=== PATIENT | male | born 1995 | race Caucasian/White ===

== ENCOUNTER 2019-03-07 16:23 | Emergency (ER) | payer OTHER, SELFPAY ==
[2019-03-07 16:25] VITALS: BP 217/140; PULSE 104; RESP 18; TEMP 36.9; O2SAT 98; BMI 39.1
[2019-03-07 16:34] VITALS: BP 190/120; PULSE 90; RESP 6; O2SAT 99
--- NOTE | 2019-03-07 16:39 | EKG12_ITS ---
Test Reason : Blood Pressure : / mmHG Vent. Rate : 103 BPM Atrial Rate : 103 BPM P-R Int : 144 ms QRS Dur : 080 ms QT Int : 314 ms P-R-T Axes : 029 017 010 degrees QTc Int : 411 ms Sinus tachycardia NONSPECIFIC T- WAVE ABNORMALITY Confirmed by ISRAEL MARQUEZ, WENDY ([id number]), movie editor SARANYA LEE ([id number]) on 03/09/2019 11:34:29 AM Referred By: JOSE Confirmed By:WENDY WOOD MD
--- NOTE | 2019-03-07 16:40 | ED.VISSUMM ---
- ER Visit Summary Date of Service: 03/07/19 Chief Complaint: Hypertension History of Present Illness: The patient is a 23 M who presents the emergency department after being referred by the urgent care for hypertension. Patient states he went to urgent care with a 3-day history of a sore throat. He denies any fevers or cough. No significant rhinorrhea. He states he looked in the mirror and saw a white pustules on the tonsils as well as pharyngeal erythema. He called his aunt who is a nurse who told him to go to urgent care. When he got to urgent care they took his blood pressure and said that it was extremely high that he needed to come to the emergency room. Couple months ago he was seen by unknown physician in the [place] area was told he had hypertension was put on an unknown medication which she did not take. He denies any headache, blurred vision, dyspnea, chest pains, abnormal urination, or paresthesias/muscle weakness. Physical Examination: Manual blood pressure 190/120 heart rate of 90 respirations are 6 and unlabored pulse ox is 99% afebrile BMI 39.1 Gen: Well-nourished well-developed Head: Normocephalic atraumatic Eyes: Perrl EOMI ENT: TMs clear no rhinorrhea moist mucous membranes there is pharyngeal erythema with tonsillar exudates and swelling. No retropharyngeal or peritonsillar abscess noted. Neck: Supple oddly tender anterior lymphadenopathy. No JVD nontender CVS: Regular rate rhythm no murmurs normal S1-S2 Respiratory: No distress clear to auscultation bilaterally chest nontender Abdomen: Soft nontender nondistended normal bowel sounds no masses Back: Nontender Extremity: Nontender no edema Skin: Normal color no rash Neuro: alert orientated ?3 CN II-XII intact normal strength sensation reflexes gait cerebellar Psych: Normal affect normal mood Test Results: Rapid strep was obtained and was negative. EKG, CBC, BMP, and urinalysis were obtained. EKG demonstrates a sinus tachycardia rate of 103. No concerning features of ACS. Creatinine 1.21. Urinalysis shows no protein. Chest x-ray shows no cardiomegaly. Emergency Department Course and Treatment: Patient will have a throat culture performed. We will place him on azithromycin. Also given a dose of Norvasc. He is otherwise asymptomatic from his hypertension. He understands that he needs to get this under control. I will place him on 5 mg of Norvasc a day and have him follow-up with primary care in 1 week for blood pressure check. Impression: 1. Uncontrolled hypertension 2. Pharyngitis This note was generated with [employer] software. It may contain incorrect words, spelling, and punctuation that were not noted in review of the chart prior to signing ED Disposition - Plan for ED Patient: Disposition: Home or Assisted Living Instructions: HYPERTENSION, New (Begin Treatment) Prescriptions: Azithromycin 500 mg PO DAILY #5 tab Prescription Printed Amlodipine [Norvasc] 5 mg PO DAILY #14 tab Prescription Printed
[2019-03-07 17:02] LABS: Bacteria 0 SEEN /hpf (None Seen); Mucous, Urine 0 SEEN /hpf (<or=2+); Red Blood Cells-Urine 0 SEEN /hpf (0-5); Squamous Epithelial Cells - UA 0 SEEN /hpf (0-5); White Blood Cells 0 SEEN /hpf (0-5)
--- NOTE | 2019-03-07 17:10 | RAD_ITS ---
STUDY: X-RAY CHEST REASON FOR EXAM: Male, 23 years old. Hypertension, sore throat TECHNIQUE: PA and lateral COMPARISON: None. FINDINGS: The lungs are clear and expanded. There is no demonstrated pleural abnormality. Normal size heart. Normal mediastinum and gene. Normal visualized pulmonary arteries. Normal visualized aortic arch and descending thoracic aorta. Dorsal spine demonstrates mild spondylosis. Normal visualized ribs, clavicles, and shoulders. There is no demonstrated abnormality of the visualized soft tissue structures of the upper abdomen. RAD/Chest PA and Lateral IMPRESSION: No acute cardiopulmonary pathology. Electronically Signed: Quinton Cordero MD at 17:33 EDT , Service support ,
[2019-03-07 17:20] LABS: Absolute Lymphocyte Count 1.32 X10^3/ul (0.83-4.51); Absolute Neutrophil Count 5.7 X10^3/uL (2.0-7.7); Basophil# 0.02 X10^3/uL; Basophil% 0.2 % (0-1); Eosinophil# 0.09 X10^3/uL; Eosinophils% 1.1 % (0-5); Hematocrit 43.6 % (40-54); Hemoglobin 14.8 g/dl (13.0-16.5); Lymphocyte # 1.32 X10^3/ul (4.0); Mean Corp Hgb Conc 33.9 g/gl (32-36); Mean Corpuscular Hgb 29.8 pg (27.0-32.0); Mean Corpuscular Volume 87.9 fL (80-94); Mean Platelet Vol. 10.6 fl (6.2-12.0); Monocyte# 1.06 X10^3/uL; Monocyte% 12.9 % (0-10); Neutrophil # 5.71 X10^3/uL (2.7-7.7); Neutrophil % 69.4 % (47-70); Platelet Count 218 K/mm3 (150-450); RBC Distribution Width CV 12.3 % (11.6-14.6); RBC Distribution Width SD 39.1 fl (35.1-43.9); Red Blood Count 4.96 M/mm3 (4.6-6.2); White Blood Count 8.2 K/mm3 (4.4-11.0)
[2019-03-07 17:26] VITALS: BP 180/120
[2019-03-07 17:32] LABS: POSITIVE COUNT NO; POSITIVE DIFFERENTIAL NO; POSITIVE MORPHOLOGY NO
[2019-03-07 17:35] LABS: Color, Urine Yellow (Yellow); Glucose, Dipstick Normal (Normal); Ketone-Dipstick Negative (Negative); Leukocyte Esterase-Dipstick Negative /ul (Negative); Nitrite-Dipstick Negative (Negative); Occult Blood-Urine 25 /ul (Negative); Protein-Dipstick Negative (Negative); Specific Gravity, Urine 1.005 (1.002-1.030); Urine Bilirubin Dipstick Negative (Negative); Urine Clarity Clear (Clear); Urine Urobilinogen Normal (Normal)
[2019-03-07 17:37] LABS: Anion Gap 8 (5-15); BUN 11 mg/dL (7-18); BUN/Creat Ratio 9.1 RATIO (10-20); Calcium,Total 9.4 mg/dL (8.5-10.1); Chloride 103 mmol/L (98-107); Creatinine, Serum 1.21 mg/dL (0.70-1.30); EST Glomerular Filtration Rate 78 mL/min (>60); Est Glom Filt Rate - Afr Amer 94 mL/min (>60); Estimated Creatinine Clearance 100.26 ml/min; Glucose 91 mg/dL (74-106); Potassium 3.9 mmol/L (3.5-5.1); Sodium Level 137 mmol/L (136-145)
[2019-03-07] MEDS: amLODIPine 5 MG Tablet PO (18:47)
[2019-03-07 18:48] VITALS: BP 207/138; PULSE 89; RESP 16; O2SAT 97
[2019-03-07 19:14] VITALS: BP 170/101; PULSE 76; RESP 18; O2SAT 100
== END 2019-03-07 19:16 | disposition home or self-care (01) ==
PROVIDERS: Emergency Provider Emergency Medicine
DX: I10 Essential (primary) hypertension (principal); J02.9 Acute pharyngitis, unspecified; Z72.0 Tobacco use
CPT/HCPCS: 71046; 80048; 81001; 85025; 87880; 93005; 99284; A4216